=== PATIENT | male | born 1985 | race African-American/Black ===

== ENCOUNTER 2018-06-07 12:41 | Emergency (ER) | payer SELFPAY ==
[~2018-06-07] VITALS: Ht 177.8 cm; Wt 68.3 kg
[2018-06-07 13:01] VITALS: BP 118/72
== END 2018-06-07 15:00 | disposition home or self-care (01) ==
LOC: ER 12:44
DX: S91.012D Laceration without foreign body, left ankle, subsequent encounter (principal); X58.XXXD Exposure to other specified factors, subsequent encounter

== ENCOUNTER 2023-06-14 11:54 | Emergency (ER) | payer MEDICAID, OTHER ==
[~2023-06-14] VITALS: Ht 182.9 cm; Wt 63.6 kg
[2023-06-14 12:22] VITALS: BP 112/73; PULSE 60; RESP 16; TEMP 98; O2SAT 100
[2023-06-14] MEDS ORDERED: KETOROLAC TROMETH 60MG/2ML VIAL IM ONE (12:45)
[2023-06-14] MEDS ORDERED: BACL10TA PO (12:57)
[2023-06-14] MEDS ORDERED: IBUP-1456 PO (12:57)
== END 2023-06-14 13:11 | disposition home or self-care (01) ==
LOC: ER 11:54 → EDUNIT# 11:54 → ER 13:10
DX: M43.6 Torticollis (principal); F17.210 Nicotine dependence, cigarettes, uncomplicated; F12.10 Cannabis abuse, uncomplicated
CPT/HCPCS: 72040; 96372; 99283; J1885